=== PATIENT | female | born 1980 | race Caucasian/White ===

== ENCOUNTER 2017-04-05 04:59 | Inpatient (IN) ==
[2017-04-05] MEDS: SODIUM CHLORIDE 0.9% 1,000 ML IV SCH (06:40)
[2017-04-05] MEDS: HYDROmorphone 2 MG/1 ML VIAL IV PRN ×8 (07:00→23:50)
[2017-04-05 07:52] LABS: Basophils % 0.1 % (0.0-0.8); Eosinophils % 0.1 % (0.00-10.9); Hematocrit 44.1 VOL% (35.7-47.0); Hemoglobin 14.5 GM/DL (12.0-16.0); Immature Granulocytes % 1.5 %; Immature Granulocytes Absolute 0.27 #; Lymphocytes # 1.4 10*3/uL (1.4-4.0); Lymphocytes % 7.7 % (21.3-54.2); Mean Corpuscular HGB Conc 32.9 GM/DL (32-36); Mean Corpuscular Hemoglobin 32 PG (27-34); Mean Corpuscular Volume 98.7 FL (87-102); Mean Platelet Volume 9.9 FL (9.6-12.0); Monocytes # 0.3 10*3/uL (0.11-0.8); Monocytes % 1.8 % (1.7-12.7); Neutrophils # 16.5 10*3/uL (1.4-7.4); Neutrophils % 88.8 % (38.7-73.9); Platelet Count 428 T/CUMM (130-400); Red Blood Count 4.47 MC/CUMM (3.8-5.5); Red Cell Distribution Width 14.7 % (9.3-17.3); White Blood Count 18.6 T/CUMM (4-12)
[2017-04-05 08:10] LABS: Albumin 2.4 G/DL (3.4-5.0); Bilirubin,Total 0.5 MG/DL (0.2-1.0); Calcium 8.1 MG/DL (8.5-10.1); Osmolality,Calculated 283.7 MOS/KG (273-304); Potassium 3.1 MMOL/L (3.5-5.1)
[2017-04-05 08:11] LABS: Risk Ratio 2.62; VLDL CHOLESTEROL 43.4 MG/DL
[2017-04-05] MEDS ORDERED: HYDROmorphone 2 MG/1 ML VIAL IV ONE (10:12)
[2017-04-05] MEDS ORDERED: oxyCODONE/ACETAMINOPHEN 5-325 MG TABLET PO PRN (10:13)
[2017-04-05] MEDS ORDERED: HYDROmorphone 2 MG/1 ML VIAL IV PRN (11:53)
[2017-04-05] MEDS ORDERED: HYDROmorphone PCA 30 MG/30 ML SYRINGE IV SCH (12:30)
[2017-04-05] MEDS: ONDANSETRON 4 MG/2 ML VIAL IV PRN ×3 (13:32→21:50)
[2017-04-05] MEDS: POTASSIUM CHLORIDE RIDER 10 MEQ in PREMIX 1 EACH IV SCH ×5 (13:37→23:54)
[2017-04-05] MEDS: fentaNYL 50 MCG/HR PATCH TRANSDERM SCH (17:10)
[2017-04-05] MEDS: METOPROLOL TARTRATE 50 MG TABLET PO SCH ×2 (17:44→21:48)
[2017-04-05] MEDS: HYDROCORTISONE 10 MG TABLET PO SCH ×2 (17:45→21:48)
[2017-04-05] MEDS: LEVOTHYROXINE 88 MCG TABLET PO SCH (17:45)
[2017-04-05] MEDS: hydrALAZINE 20 MG/1 ML VIAL IV PRN (23:15)
[2017-04-06] MEDS ORDERED: SIMETHICONE CHEW 125 MG TABLET PO PRN (00:07)
[2017-04-06] MEDS: HYDROmorphone 2 MG/1 ML VIAL IV PRN ×11 (01:54→23:22)
[2017-04-06] MEDS: ONDANSETRON 4 MG/2 ML VIAL IV PRN ×2 (01:57→21:07)
[2017-04-06] MEDS: POTASSIUM CHLORIDE RIDER 10 MEQ in PREMIX 1 EACH IV SCH (01:59)
[2017-04-06 05:27] LABS: Basophils # 0.1 10*3/uL (0.0-0.2); Basophils % 0.4 % (0.0-0.8); Eosinophils # 0.1 10*3/uL (0.0-0.87); Eosinophils % 0.4 % (0.00-10.9); Hematocrit 50.4 VOL% (35.7-47.0); Hemoglobin 17.2 GM/DL (12.0-16.0); Immature Granulocytes % 1.8 %; Immature Granulocytes Absolute 0.35 #; Lymphocytes # 1.6 10*3/uL (1.4-4.0); Lymphocytes % 7.9 % (21.3-54.2); Mean Corpuscular HGB Conc 34.1 GM/DL (32-36); Mean Corpuscular Hemoglobin 33 PG (27-34); Mean Corpuscular Volume 96.6 FL (87-102); Mean Platelet Volume 9.8 FL (9.6-12.0); Neutrophils # 16.6 10*3/uL (1.4-7.4); Neutrophils % 84.5 % (38.7-73.9); Platelet Count 380 T/CUMM (130-400); Red Blood Count 5.22 MC/CUMM (3.8-5.5); Red Cell Distribution Width 15.6 % (9.3-17.3); White Blood Count 19.6 T/CUMM (4-12)
[2017-04-06] MEDS: SODIUM CHLORIDE 0.45% 1,000 ML IV SCH ×4 (06:06→21:11)
[2017-04-06] MEDS: SODIUM CHLORIDE 0.9% 1,000 ML IV SCH (06:08)
[2017-04-06 06:09] LABS: Albumin 2.1 G/DL (3.4-5.0); Calcium 8.4 MG/DL (8.5-10.1); Osmolality,Calculated 278.3 MOS/KG (273-304); Potassium 4.4 MMOL/L (3.5-5.1); Total Protein 4.5 G/DL (6.4-8.3)
[2017-04-06] MEDS: METOPROLOL TARTRATE 50 MG TABLET PO SCH ×2 (08:11→20:40)
[2017-04-06] MEDS: HYDROCORTISONE 10 MG TABLET PO SCH ×2 (08:11→20:40)
[2017-04-06] MEDS: LEVOTHYROXINE 88 MCG TABLET PO SCH (10:19)
[2017-04-06] MEDS: ALPRAZolam 0.25 MG TABLET PO PRN ×2 (11:06→20:40)
[2017-04-06] MEDS: ALBUTEROL/IPRATROPIUM 3 ML NEB RESP TX SCH (20:55)
[2017-04-07] MEDS: ALBUTEROL/IPRATROPIUM 3 ML NEB RESP TX SCH ×4 (01:16→19:23)
[2017-04-07] MEDS: ONDANSETRON 4 MG/2 ML VIAL IV PRN (01:48)
[2017-04-07] MEDS: HYDROmorphone 2 MG/1 ML VIAL IV PRN ×11 (01:48→23:26)
[2017-04-07] MEDS: SODIUM CHLORIDE 0.45% 1,000 ML IV SCH ×2 (04:07→06:49)
[2017-04-07 05:13] LABS: Basophils % 0.2 % (0.0-0.8); Eosinophils # 0.1 10*3/uL (0.0-0.87); Eosinophils % 0.5 % (0.00-10.9); Hematocrit 41.3 VOL% (35.7-47.0); Hemoglobin 13.6 GM/DL (12.0-16.0); Immature Granulocytes % 0.6 %; Immature Granulocytes Absolute 0.12 #; Lymphocytes # 1.8 10*3/uL (1.4-4.0); Lymphocytes % 9.1 % (21.3-54.2); Mean Corpuscular HGB Conc 32.9 GM/DL (32-36); Mean Corpuscular Hemoglobin 33 PG (27-34); Mean Corpuscular Volume 98.6 FL (87-102); Monocytes # 1.2 10*3/uL (0.11-0.8); Monocytes % 5.9 % (1.7-12.7); Neutrophils # 16.4 10*3/uL (1.4-7.4); Neutrophils % 83.7 % (38.7-73.9); Platelet Count 270 T/CUMM (130-400); Red Blood Count 4.19 MC/CUMM (3.8-5.5); Red Cell Distribution Width 14.8 % (9.3-17.3); White Blood Count 19.6 T/CUMM (4-12)
[2017-04-07] MEDS: ALPRAZolam 0.25 MG TABLET PO PRN ×2 (05:28→15:49)
[2017-04-07 05:47] LABS: Albumin 1.7 G/DL (3.4-5.0); Bilirubin,Total 1.3 MG/DL (0.2-1.0); Calcium 7.9 MG/DL (8.5-10.1); Osmolality,Calculated 268.8 MOS/KG (273-304); Potassium 3.8 MMOL/L (3.5-5.1); Total Protein 4.2 G/DL (6.4-8.3)
[2017-04-07] MEDS: HYDROCORTISONE 10 MG TABLET PO SCH ×2 (08:22→20:09)
[2017-04-07] MEDS: METOPROLOL TARTRATE 50 MG TABLET PO SCH ×2 (08:22→20:09)
[2017-04-07] MEDS: LEVOTHYROXINE 88 MCG TABLET PO SCH (08:24)
[2017-04-07] MEDS ORDERED: FUROSEMIDE 40 MG/4 ML VIAL ONE (09:45)
[2017-04-07] MEDS ORDERED: FUROSEMIDE 40 MG/4 ML VIAL IV ONE (09:53)
[2017-04-07] MEDS ORDERED: SODIUM PHOSPHATE ENEMA 133 ML BOTTLE RECTAL ONE (09:55)
[2017-04-07] MEDS: CEFEPIME 1,000 MG in SYRINGE 1 EACH IV SCH ×2 (11:27→17:46)
[2017-04-07] MEDS ORDERED: DEXTROSE 10% 1,000 ML IV PRN (15:02)
[2017-04-07] MEDS: TRACE ELEMENTS (5) 1 ML, MULTIVITAMIN INJ 10 ML in AMINO ACIDS/DEXT/LYTES 5-15% 2,000 ML IV SCH (17:57)
[2017-04-07] MEDS: FAT EMULSION 20% 250 ML IV SCH (17:58)
[2017-04-07] MEDS ORDERED: LORazepam 2 MG/1 ML VIAL IV PRN (21:00)
[2017-04-07 21:23] LABS: Basophils % 0.2 % (0.0-0.8); Eosinophils # 0.1 10*3/uL (0.0-0.87); Eosinophils % 0.6 % (0.00-10.9); Hematocrit 38.7 VOL% (35.7-47.0); Hemoglobin 13.4 GM/DL (12.0-16.0); Immature Granulocytes % 0.5 %; Lymphocytes # 1.5 10*3/uL (1.4-4.0); Lymphocytes % 8.1 % (21.3-54.2); Mean Corpuscular HGB Conc 34.6 GM/DL (32-36); Mean Corpuscular Hemoglobin 33 PG (27-34); Mean Corpuscular Volume 95.8 FL (87-102); Mean Platelet Volume 10.5 FL (9.6-12.0); Monocytes # 1.1 10*3/uL (0.11-0.8); Monocytes % 5.7 % (1.7-12.7); Neutrophils # 15.9 10*3/uL (1.4-7.4); Neutrophils % 84.9 % (38.7-73.9); Platelet Count 177 T/CUMM (130-400); Red Blood Count 4.04 MC/CUMM (3.8-5.5); Red Cell Distribution Width 14.9 % (9.3-17.3); White Blood Count 18.7 T/CUMM (4-12)
[2017-04-07 21:40] LABS: Calcium 7.4 MG/DL (8.5-10.1); Osmolality,Calculated 272.7 MOS/KG (273-304); Potassium 3.1 MMOL/L (3.5-5.1)
[2017-04-07 21:44] LABS: Troponin I Only < 0.015 NG/ML (0.00-0.045)
[2017-04-07] MEDS ORDERED: POTASSIUM CHLORIDE RIDER 10 MEQ in PREMIX 1 EACH IV PRN ×2 (22:04→22:09)
[2017-04-07] MEDS ORDERED: POTASSIUM CHLORIDE RIDER 0 ML IV ONE (22:13)
[2017-04-07] MEDS ORDERED: POTASSIUM CHLORIDE RIDER 20 MEQ in PREMIX 1 EACH IV PRN (22:21)
[2017-04-07] MEDS: POTASSIUM CHLORIDE RIDER 20 MEQ in PREMIX 1 EACH IV PRN (22:54)
[2017-04-07] MEDS ORDERED: ALBUTEROL 2.5 MG/3 ML NEB RESP TX SCH (23:00)
[2017-04-07 23:37] LABS: Apearance,Urine CLEAR (Clear); Bacteria,Urine Occasional /HPF (Few); Bilirubin,Urine Negative (Negative); Blood, Urine Negative (Negative); Glucose,Urine (UA) 50 mg/dL (Negative); Ketones,Urine 20 mg/dL (Negative); Mucus,Urine Occasional /LPF (Occasional); Nitrite,Urine Negative (Negative); Protein,Urine Negative; Squamous Epithelial Cell,Urine Occasional /HPF (0-10); Urine Color Yellow (Yellow); Urine Urobilinogen < 2.0 EU/DL (0.2-1.0); WBC,Urine 1 /HPF (0-6)
[2017-04-08] MEDS: LEVALBUTEROL 1.25 MG/3 ML NEB RESP TX SCH ×7 (00:15→23:54)
[2017-04-08] MEDS: POTASSIUM CHLORIDE RIDER 20 MEQ in PREMIX 1 EACH IV PRN ×2 (00:45→05:56)
[2017-04-08] MEDS: CEFEPIME 1,000 MG in SYRINGE 1 EACH IV SCH ×3 (02:18→17:20)
[2017-04-08] MEDS: HYDROmorphone 2 MG/1 ML VIAL IV PRN ×10 (02:22→23:35)
[2017-04-08] MEDS: ALPRAZolam 0.25 MG TABLET PO PRN ×3 (05:03→19:24)
[2017-04-08 05:18] LABS: Basophils % 0.1 % (0.0-0.8); Eosinophils # 0.1 10*3/uL (0.0-0.87); Eosinophils % 0.6 % (0.00-10.9); Hematocrit 34.5 VOL% (35.7-47.0); Hemoglobin 11.9 GM/DL (12.0-16.0); Immature Granulocytes % 0.6 %; Lymphocytes # 1.1 10*3/uL (1.4-4.0); Lymphocytes % 6.6 % (21.3-54.2); Mean Corpuscular HGB Conc 34.5 GM/DL (32-36); Mean Corpuscular Hemoglobin 33 PG (27-34); Mean Corpuscular Volume 95.6 FL (87-102); Monocytes # 0.9 10*3/uL (0.11-0.8); Monocytes % 5.2 % (1.7-12.7); Neutrophils % 86.9 % (38.7-73.9); Platelet Count 239 T/CUMM (130-400); Red Blood Count 3.61 MC/CUMM (3.8-5.5); White Blood Count 17.2 T/CUMM (4-12)
[2017-04-08 05:26] LABS: Calcium 7.7 MG/DL (8.5-10.1); Osmolality,Calculated 275.5 MOS/KG (273-304); Potassium 3.9 MMOL/L (3.5-5.1)
[2017-04-08 05:29] LABS: Albumin 1.7 G/DL (3.4-5.0); Bilirubin,Total 0.5 MG/DL (0.2-1.0); Calcium 7.4 MG/DL (8.5-10.1); Osmolality,Calculated 277.4 MOS/KG (273-304); Potassium 3.7 MMOL/L (3.5-5.1); Total Protein 4.1 G/DL (6.4-8.3)
[2017-04-08] MEDS ORDERED: FUROSEMIDE 40 MG/4 ML VIAL IV ONE (07:26)
[2017-04-08] MEDS: HYDROCORTISONE 10 MG TABLET PO SCH (08:26)
[2017-04-08] MEDS: LEVOTHYROXINE 88 MCG TABLET PO SCH (08:26)
[2017-04-08] MEDS: METOPROLOL TARTRATE 50 MG TABLET PO SCH ×2 (08:26→21:29)
[2017-04-08] MEDS: fentaNYL 50 MCG/HR PATCH TRANSDERM SCH (08:27)
[2017-04-08] MEDS: FAT EMULSION 20% 250 ML IV SCH (15:42)
[2017-04-08] MEDS: TRACE ELEMENTS (5) 1 ML, MULTIVITAMIN INJ 10 ML in AMINO ACIDS/DEXT/LYTES 5-15% 2,000 ML IV SCH (17:06)
[2017-04-08] MEDS: methylPREDNISolone SOD SUC 40 MG/1 ML VIAL IV SCH ×2 (17:16→21:27)
[2017-04-08] MEDS: AZITHROMYCIN INJ 500 MG in SODIUM CHLORIDE 0.9% 250 ML IV SCH (17:40)
[2017-04-08] MEDS: ENOXAPARIN 40 MG/0.4 ML SYRINGE SUBCUT SCH (21:28)
[2017-04-08] MEDS: hydrALAZINE 20 MG/1 ML VIAL IV PRN (23:35)
[2017-04-09] MEDS: HYDROmorphone 2 MG/1 ML VIAL IV PRN ×6 (01:44→21:31)
[2017-04-09] MEDS: CEFEPIME 1,000 MG in SYRINGE 1 EACH IV SCH ×3 (02:30→17:45)
[2017-04-09] MEDS: methylPREDNISolone SOD SUC 40 MG/1 ML VIAL IV SCH (03:16)
[2017-04-09] MEDS: ALPRAZolam 0.25 MG TABLET PO PRN ×2 (03:17→08:05)
[2017-04-09] MEDS: LEVALBUTEROL 1.25 MG/3 ML NEB RESP TX SCH ×6 (03:30→23:43)
[2017-04-09] MEDS: hydrALAZINE 20 MG/1 ML VIAL IV PRN (05:01)
[2017-04-09 05:40] LABS: Basophils # 0.1 10*3/uL (0.0-0.2); Basophils % 0.2 % (0.0-0.8); Hematocrit 37.1 VOL% (35.7-47.0); Hemoglobin 12.7 GM/DL (12.0-16.0); Immature Granulocytes % 1.2 %; Lymphocytes # 0.3 10*3/uL (1.4-4.0); Lymphocytes % 0.9 % (21.3-54.2); Mean Corpuscular HGB Conc 34.2 GM/DL (32-36); Mean Corpuscular Hemoglobin 33 PG (27-34); Mean Corpuscular Volume 96.1 FL (87-102); Mean Platelet Volume 10.5 FL (9.6-12.0); Monocytes # 0.6 10*3/uL (0.11-0.8); Monocytes % 1.9 % (1.7-12.7); Neutrophils # 30.8 10*3/uL (1.4-7.4); Neutrophils % 95.8 % (38.7-73.9); Platelet Count 272 T/CUMM (130-400); Red Blood Count 3.86 MC/CUMM (3.8-5.5); Red Cell Distribution Width 15.4 % (9.3-17.3); White Blood Count 32.2 T/CUMM (4-12)
[2017-04-09 06:07] LABS: Alanine Aminotransferase < 9 U/L (13-56); Albumin 1.9 G/DL (3.4-5.0); Alkaline Phosphatase 129 U/L (45-117); Aspartate Amino Transferase 35 U/L (0-37); Blood Urea Nitrogen 7 MG/DL (7-18); Calcium 8.1 MG/DL (8.5-10.1); Glucose 152 MG/DL (74-106); Osmolality,Calculated 283.1 MOS/KG (273-304); Potassium 3.7 MMOL/L (3.5-5.1); Sodium 142 MMOL/L (136-145); Total Protein 5.1 G/DL (6.4-8.3)
[2017-04-09 06:09] LABS: Band Neutrophils 5 % (0-10); Lymphocytes 1 % (20-55); Macrocytosis 2+; Platelet Estimate Normal; Segmented Neutrophils 91 % (50-85); Total Cells Counted 100
[2017-04-09] MEDS ORDERED: LORazepam 2 MG/1 ML VIAL IV ONE ×3 (06:30→14:30)
[2017-04-09] MEDS ORDERED: LIDOCAINE 1% 20 ML VIAL MISC INJ ONE (07:30)
[2017-04-09] MEDS ORDERED: MIDAZOLAM 2 MG/2 ML VIAL IV ONE (07:30)
[2017-04-09] MEDS ORDERED: METOPROLOL SUCCINATE XL 50 MG TABLET PO ONE (08:05)
[2017-04-09] MEDS ORDERED: METOPROLOL TARTRATE 5 MG/5 ML VIAL IV ONE ×2 (08:06→08:23)
[2017-04-09] MEDS: METOPROLOL SUCCINATE XL 50 MG TABLET PO SCH ×3 (08:10→20:19)
[2017-04-09] MEDS ORDERED: METOPROLOL TARTRATE 5 MG/5 ML VIAL IV PRN (08:23)
[2017-04-09] MEDS ORDERED: methylPREDNISolone SOD SUC 40 MG/1 ML VIAL IV SCH (09:00)
[2017-04-09 10:13] LABS: Apearance,Urine CLEAR (Clear); Bacteria,Urine Occasional /HPF (Few); Bilirubin,Urine Negative (Negative); Blood, Urine Small mg/dL (Negative); Glucose,Urine (UA) 150 mg/dL (Negative); Ketones,Urine Negative (Negative); Mucus,Urine Occasional /LPF (Occasional); Nitrite,Urine Negative (Negative); Protein,Urine Negative; RBC,Urine 5 /HPF (0-4); Squamous Epithelial Cell,Urine Occasional /HPF (0-10); Urine Color Yellow (Yellow); Urine Specific Gravity 1.058 (1.001-1.035); Urine Urobilinogen < 2.0 EU/DL (0.2-1.0); WBC,Urine 1 /HPF (0-6)
[2017-04-09] MEDS ORDERED: LIDOCAINE 2% VISCOUS 100 ML BOTTLE SWISH/SPIT ONE (10:21)
[2017-04-09] MEDS ORDERED: LIDOCAINE 4% TOP SOLN 50 ML BOTTLE RESP TX ONE (10:24)
[2017-04-09 10:28] LABS: ABG HCO3 32.4 MMOL/L (20-26); ABG Oxygen Saturation 82.9 % (95-100); ABG PCO2 40.2 MM HG (35-48); ABG PH 7.519 (7.35-7.45); ABG PO2 44.8 MM HG (80-95); ABG TCO2 28.4 MMOL/L (23-27); Allen Test Positive
[2017-04-09] MEDS: LEVOTHYROXINE 88 MCG TABLET PO SCH (10:34)
[2017-04-09] MEDS ORDERED: LABETALOL 100 MG/20 ML VIAL IV ONE ×2 (11:07→13:38)
[2017-04-09] MEDS: VANCOMYCIN INJ 1,000 MG in SODIUM CHLORIDE 0.9% 250 ML IV SCH ×2 (11:30→19:23)
[2017-04-09] MEDS: ALPRAZolam 0.5 MG TABLET PO PRN (12:53)
[2017-04-09] MEDS ORDERED: ETOMIDATE 20 MG/10 ML VIAL IV ONE ×2 (13:02→13:28)
[2017-04-09] MEDS ORDERED: SUCCINYLCHOLINE 200 MG/10 ML VIAL ONE (13:07)
[2017-04-09] MEDS ORDERED: PROPOFOL 1,000 MG/100 ML BOTTLE IV ONE (13:09)
[2017-04-09] MEDS ORDERED: SUCCINYLCHOLINE 200 MG/10 ML VIAL IV ONE (13:29)
[2017-04-09] MEDS ORDERED: LORazepam 2 MG/1 ML VIAL ONE (13:36)
[2017-04-09] MEDS: PROPOFOL 1,000 MG/100 ML BOTTLE IV SCH ×3 (13:43→19:38)
[2017-04-09] MEDS: fentaNYL INJ 1,250 MCG in SODIUM CHLORIDE 0.9% 225 ML IV SCH (14:45)
[2017-04-09 14:46] LABS: ABG Base Excess 6.5 MMOL/L (-2.5-2.5); ABG HCO3 30.3 MMOL/L (20-26); ABG Oxygen Saturation 94.6 % (95-100); ABG PCO2 48.3 MM HG (35-48); ABG PO2 74.6 MM HG (80-95); ABG TCO2 28.3 MMOL/L (23-27)
[2017-04-09] MEDS: FAT EMULSION 20% 250 ML IV SCH (15:30)
[2017-04-09] MEDS: AZITHROMYCIN INJ 500 MG in SODIUM CHLORIDE 0.9% 250 ML IV SCH (17:50)
[2017-04-09] MEDS: TRACE ELEMENTS (5) 1 ML, MULTIVITAMIN INJ 10 ML in AMINO ACIDS/DEXT/LYTES 5-15% 2,000 ML IV SCH (19:42)
[2017-04-09] MEDS: ENOXAPARIN 40 MG/0.4 ML SYRINGE SUBCUT SCH (20:18)
[2017-04-10] MEDS: PROPOFOL 1,000 MG/100 ML BOTTLE IV SCH ×9 (00:55→23:49)
[2017-04-10] MEDS: VANCOMYCIN INJ 1,000 MG in SODIUM CHLORIDE 0.9% 250 ML IV SCH ×3 (02:36→20:08)
[2017-04-10] MEDS: CEFEPIME 1,000 MG in SYRINGE 1 EACH IV SCH ×3 (02:36→18:11)
[2017-04-10 04:37] LABS: ABG Base Excess 6.9 MMOL/L (-2.5-2.5); ABG HCO3 30.8 MMOL/L (20-26); ABG Oxygen Saturation 99.6 % (95-100); ABG PCO2 48.7 MM HG (35-48); ABG PH 7.431 (7.35-7.45); ABG TCO2 28.9 MMOL/L (23-27); Allen Test Positive; Pt O2 Delivery Device Ventilator
[2017-04-10] MEDS: LEVALBUTEROL 1.25 MG/3 ML NEB RESP TX SCH ×6 (04:37→23:41)
[2017-04-10 05:12] LABS: Basophils % 0.1 % (0.0-0.8); Hematocrit 32.6 VOL% (35.7-47.0); Hemoglobin 11.2 GM/DL (12.0-16.0); Immature Granulocytes % 1.2 %; Immature Granulocytes Absolute 0.36 #; Lymphocytes # 0.8 10*3/uL (1.4-4.0); Lymphocytes % 2.5 % (21.3-54.2); Mean Corpuscular HGB Conc 34.4 GM/DL (32-36); Mean Corpuscular Hemoglobin 33 PG (27-34); Mean Corpuscular Volume 96.7 FL (87-102); Mean Platelet Volume 10.2 FL (9.6-12.0); Monocytes # 1.2 10*3/uL (0.11-0.8); Monocytes % 3.8 % (1.7-12.7); Neutrophils # 28.6 10*3/uL (1.4-7.4); Neutrophils % 92.4 % (38.7-73.9); Platelet Count 252 T/CUMM (130-400); Red Blood Count 3.37 MC/CUMM (3.8-5.5); Red Cell Distribution Width 15.7 % (9.3-17.3); White Blood Count 30.9 T/CUMM (4-12)
[2017-04-10 05:39] LABS: Alanine Aminotransferase 9 U/L (13-56); Albumin 1.7 G/DL (3.4-5.0); Alkaline Phosphatase 104 U/L (45-117); Aspartate Amino Transferase 32 U/L (0-37); Bilirubin,Total < 0.39 MG/DL (0.2-1.0); Blood Urea Nitrogen 11 MG/DL (7-18); Calcium 8.3 MG/DL (8.5-10.1); Glucose 158 MG/DL (74-106); Potassium 3.7 MMOL/L (3.5-5.1); Sodium 143 MMOL/L (136-145); Total Protein 4.8 G/DL (6.4-8.3)
[2017-04-10 05:40] LABS: Band Neutrophils 1 % (0-10); Lymphocytes 3 % (20-55); Segmented Neutrophils 92 % (50-85); Total Cells Counted 100
[2017-04-10 05:41] LABS: Hypochromasia 1+; Macrocytosis Slight; Platelet Estimate Adequate; Prealbumin 10.8 MG/DL (20-40)
[2017-04-10] MEDS: methylPREDNISolone SOD SUC 40 MG/1 ML VIAL IV SCH ×2 (09:36→18:13)
[2017-04-10] MEDS: LEVOTHYROXINE 88 MCG TABLET PO SCH (09:37)
[2017-04-10] MEDS: fentaNYL INJ 1,250 MCG in SODIUM CHLORIDE 0.9% 225 ML IV SCH ×2 (10:16→14:36)
[2017-04-10] MEDS: METOPROLOL SUCCINATE XL 50 MG TABLET PO SCH (10:45)
[2017-04-10] MEDS ORDERED: SODIUM CHLORIDE 0.9% 500 ML IV SCH (11:30)
[2017-04-10] MEDS ORDERED: TRACE ELEMENTS (5) 1 ML, MULTIVITAMIN INJ 10 ML in AMINO ACIDS/DEXT/LYTES 5-15% 2,000 ML IV SCH (17:00)
[2017-04-10] MEDS: METOPROLOL TARTRATE 100 MG TABLET PO SCH ×2 (18:03→20:08)
[2017-04-10] MEDS: AZITHROMYCIN INJ 500 MG in SODIUM CHLORIDE 0.9% 250 ML IV SCH (18:34)
[2017-04-10] MEDS: ENOXAPARIN 40 MG/0.4 ML SYRINGE SUBCUT SCH (20:08)
[2017-04-10] MEDS: HYDROmorphone 2 MG/1 ML VIAL IV PRN ×2 (20:08→23:41)
[2017-04-11] MEDS: VANCOMYCIN INJ 1,000 MG in SODIUM CHLORIDE 0.9% 250 ML IV SCH (01:41)
[2017-04-11] MEDS: methylPREDNISolone SOD SUC 40 MG/1 ML VIAL IV SCH ×3 (01:41→16:53)
[2017-04-11] MEDS: CEFEPIME 1,000 MG in SYRINGE 1 EACH IV SCH ×3 (01:41→18:07)
[2017-04-11] MEDS: PROPOFOL 1,000 MG/100 ML BOTTLE IV SCH ×7 (02:43→22:59)
[2017-04-11] MEDS: LEVALBUTEROL 1.25 MG/3 ML NEB RESP TX SCH ×6 (03:20→23:51)
[2017-04-11] MEDS: HYDROmorphone 2 MG/1 ML VIAL IV PRN ×4 (04:23→19:47)
[2017-04-11 04:34] LABS: Basophils % 0.1 % (0.0-0.8); Hematocrit 31.9 VOL% (35.7-47.0); Hemoglobin 10.4 GM/DL (12.0-16.0); Immature Granulocytes % 1.7 %; Immature Granulocytes Absolute 0.46 #; Lymphocytes # 0.7 10*3/uL (1.4-4.0); Lymphocytes % 2.5 % (21.3-54.2); Mean Corpuscular HGB Conc 32.6 GM/DL (32-36); Mean Corpuscular Hemoglobin 33 PG (27-34); Mean Corpuscular Volume 101.6 FL (87-102); Mean Platelet Volume 11.5 FL (9.6-12.0); Monocytes # 1.3 10*3/uL (0.11-0.8); Monocytes % 4.6 % (1.7-12.7); Neutrophils # 25.4 10*3/uL (1.4-7.4); Neutrophils % 91.1 % (38.7-73.9); Platelet Count 250 T/CUMM (130-400); Red Blood Count 3.14 MC/CUMM (3.8-5.5); Red Cell Distribution Width 15.7 % (9.3-17.3); White Blood Count 27.9 T/CUMM (4-12)
[2017-04-11 05:00] LABS: Anisocytosis 2+; Band Neutrophils 5 % (0-10); Lymphocytes 5 % (20-55); Macrocytosis 3+; Segmented Neutrophils 90 % (50-85); Total Cells Counted 100
[2017-04-11 05:01] LABS: Platelet Estimate Normal
[2017-04-11] MEDS: fentaNYL INJ 1,250 MCG in SODIUM CHLORIDE 0.9% 225 ML IV SCH ×2 (05:25→15:37)
[2017-04-11] MEDS ORDERED: DEXTROSE 50% 25 GM/50 ML VIAL IV PRN (09:34)
[2017-04-11] MEDS ORDERED: GLUCAGON 1 MG VIAL IM PRN (09:34)
[2017-04-11] MEDS: METOPROLOL TARTRATE 100 MG TABLET PO SCH ×2 (09:58→20:03)
[2017-04-11] MEDS: LEVOTHYROXINE 88 MCG TABLET PO SCH (09:58)
[2017-04-11] MEDS: VANCOMYCIN INJ 1,250 MG in SODIUM CHLORIDE 0.9% 250 ML IV SCH ×2 (11:13→18:11)
[2017-04-11] MEDS: INSULIN REGULAR 100 UNIT/ML SUBCUT SCH ×2 (13:10→18:06)
[2017-04-11] MEDS: AZITHROMYCIN INJ 500 MG in SODIUM CHLORIDE 0.9% 250 ML IV SCH (16:56)
[2017-04-11] MEDS ORDERED: TRACE ELEMENTS (5) 1 ML, MULTIVITAMIN INJ 10 ML in AMINO ACIDS/DEXT/LYTES 5-15% 2,000 ML IV SCH (17:00)
[2017-04-11] MEDS ORDERED: TRACE ELEMENTS (5) 1 ML, MULTIVITAMIN INJ 10 ML in AMINO ACIDS/DEXT/LYTES 4.25-5% 2,000 ML IV SCH (17:00)
[2017-04-11] MEDS: ENOXAPARIN 40 MG/0.4 ML SYRINGE SUBCUT SCH (20:03)
[2017-04-11] MEDS: hydrALAZINE 20 MG/1 ML VIAL IV PRN (23:39)
[2017-04-12] MEDS: INSULIN REGULAR 100 UNIT/ML SUBCUT SCH ×4 (00:45→18:31)
[2017-04-12] MEDS: methylPREDNISolone SOD SUC 40 MG/1 ML VIAL IV SCH ×3 (00:46→17:00)
[2017-04-12] MEDS: fentaNYL INJ 1,250 MCG in SODIUM CHLORIDE 0.9% 225 ML IV SCH ×5 (00:46→18:05)
[2017-04-12] MEDS: PROPOFOL 1,000 MG/100 ML BOTTLE IV SCH ×8 (00:47→22:15)
[2017-04-12] MEDS: VANCOMYCIN INJ 1,250 MG in SODIUM CHLORIDE 0.9% 250 ML IV SCH ×3 (02:26→18:23)
[2017-04-12] MEDS: CEFEPIME 1,000 MG in SYRINGE 1 EACH IV SCH ×3 (02:27→18:20)
[2017-04-12] MEDS: LEVALBUTEROL 1.25 MG/3 ML NEB RESP TX SCH ×6 (03:02→23:03)
[2017-04-12 03:22] LABS: ABG HCO3 30.7 MMOL/L (20-26); ABG PCO2 46.2 MM HG (35-48); ABG PH 7.451 (7.35-7.45); ABG PO2 80.7 MM HG (80-95)
[2017-04-12 03:23] LABS: ABG Oxygen Saturation 95.9 % (95-100); ABG TCO2 27.5 MMOL/L (23-27)
[2017-04-12] MEDS: HYDROmorphone 2 MG/1 ML VIAL IV PRN ×4 (04:15→18:21)
[2017-04-12 05:10] LABS: Basophils % 0.2 % (0.0-0.8); Hematocrit 31.3 VOL% (35.7-47.0); Immature Granulocytes % 1.8 %; Immature Granulocytes Absolute 0.43 #; Lymphocytes # 1.3 10*3/uL (1.4-4.0); Lymphocytes % 5.3 % (21.3-54.2); Mean Corpuscular HGB Conc 31.9 GM/DL (32-36); Mean Corpuscular Hemoglobin 32 PG (27-34); Mean Corpuscular Volume 101.3 FL (87-102); Mean Platelet Volume 10.2 FL (9.6-12.0); Monocytes # 1.3 10*3/uL (0.11-0.8); Monocytes % 5.4 % (1.7-12.7); Neutrophils # 21.4 10*3/uL (1.4-7.4); Neutrophils % 87.3 % (38.7-73.9); Platelet Count 264 T/CUMM (130-400); Red Blood Count 3.09 MC/CUMM (3.8-5.5); Red Cell Distribution Width 15.4 % (9.3-17.3); White Blood Count 24.5 T/CUMM (4-12)
[2017-04-12 05:21] LABS: Osmolality,Calculated 289.3 MOS/KG (273-304); Potassium 4.2 MMOL/L (3.5-5.1)
[2017-04-12 05:30] LABS: Hypochromasia 1+; Lymphocytes 4 % (20-55); Macrocytosis 1+; Segmented Neutrophils 92 % (50-85); Total Cells Counted 100
[2017-04-12] MEDS: METOPROLOL TARTRATE 100 MG TABLET PO SCH ×2 (08:31→21:51)
[2017-04-12] MEDS: LEVOTHYROXINE 88 MCG TABLET PO SCH (08:31)
[2017-04-12] MEDS: AZITHROMYCIN INJ 500 MG in SODIUM CHLORIDE 0.9% 250 ML IV SCH (17:03)
[2017-04-12] MEDS: hydrALAZINE 20 MG/1 ML VIAL IV PRN (18:38)
[2017-04-12] MEDS: ALPRAZolam 0.5 MG TABLET PO PRN (21:51)
[2017-04-12] MEDS: ENOXAPARIN 40 MG/0.4 ML SYRINGE SUBCUT SCH (21:51)
[2017-04-12] MEDS: fentaNYL INJ 2,500 MCG in SODIUM CHLORIDE 0.9% 450 ML IV SCH (22:04)
[2017-04-13] MEDS: INSULIN REGULAR 100 UNIT/ML SUBCUT SCH ×4 (00:45→17:33)
[2017-04-13] MEDS: methylPREDNISolone SOD SUC 40 MG/1 ML VIAL IV SCH ×3 (00:46→19:22)
[2017-04-13] MEDS: CEFEPIME 1,000 MG in SYRINGE 1 EACH IV SCH ×3 (00:59→19:23)
[2017-04-13] MEDS: PROPOFOL 1,000 MG/100 ML BOTTLE IV SCH ×5 (01:31→21:32)
[2017-04-13] MEDS ORDERED: VANCOMYCIN INJ 1,750 MG in SODIUM CHLORIDE 0.9% 500 ML IV ONE (02:00)
[2017-04-13] MEDS: LEVALBUTEROL 1.25 MG/3 ML NEB RESP TX SCH ×2 (03:23→07:04)
[2017-04-13 06:22] LABS: Prealbumin 19.2 MG/DL (20-40)
[2017-04-13] MEDS: METOPROLOL TARTRATE 100 MG TABLET PO SCH ×2 (09:12→20:08)
[2017-04-13] MEDS: LEVOTHYROXINE 88 MCG TABLET PO SCH (09:12)
[2017-04-13] MEDS: VANCOMYCIN INJ 1,250 MG in SODIUM CHLORIDE 0.9% 250 ML IV SCH ×2 (09:53→19:28)
[2017-04-13] MEDS: HYDROmorphone 2 MG/1 ML VIAL IV PRN ×3 (10:28→20:08)
[2017-04-13] MEDS: ALBUTEROL/IPRATROPIUM 3 ML NEB RESP TX SCH ×3 (10:51→20:45)
[2017-04-13] MEDS: fentaNYL INJ 2,500 MCG in SODIUM CHLORIDE 0.9% 450 ML IV SCH ×2 (13:33→23:21)
[2017-04-13] MEDS: fentaNYL INJ 1,250 MCG in SODIUM CHLORIDE 0.9% 225 ML IV SCH (13:33)
[2017-04-13] MEDS: ALPRAZolam 0.5 MG TABLET PO PRN (14:46)
[2017-04-13] MEDS: AZITHROMYCIN INJ 500 MG in SODIUM CHLORIDE 0.9% 250 ML IV SCH (19:15)
[2017-04-13] MEDS: ENOXAPARIN 40 MG/0.4 ML SYRINGE SUBCUT SCH (20:08)
[2017-04-14] MEDS: INSULIN REGULAR 100 UNIT/ML SUBCUT SCH ×4 (00:10→17:08)
[2017-04-14] MEDS: ALBUTEROL/IPRATROPIUM 3 ML NEB RESP TX SCH ×6 (00:19→19:27)
[2017-04-14] MEDS: PROPOFOL 1,000 MG/100 ML BOTTLE IV SCH ×8 (00:51→23:26)
[2017-04-14] MEDS: methylPREDNISolone SOD SUC 40 MG/1 ML VIAL IV SCH ×3 (02:00→16:50)
[2017-04-14] MEDS: VANCOMYCIN INJ 1,250 MG in SODIUM CHLORIDE 0.9% 250 ML IV SCH ×3 (02:36→17:36)
[2017-04-14] MEDS: CEFEPIME 1,000 MG in SYRINGE 1 EACH IV SCH ×3 (02:42→17:32)
[2017-04-14 04:04] LABS: Allen Test Positive; Pt O2 Delivery Device Ventilator
[2017-04-14 04:05] LABS: ABG Base Excess 6.2 MMOL/L (-2.5-2.5); ABG Oxygen Saturation 98.1 % (95-100); ABG PCO2 45.7 MM HG (35-48); ABG PH 7.441 (7.35-7.45); ABG TCO2 28.2 MMOL/L (23-27)
[2017-04-14 04:59] LABS: Basophils % 0.2 % (0.0-0.8); Eosinophils % 0.2 % (0.00-10.9); Hematocrit 29.2 VOL% (35.7-47.0); Hemoglobin 10.3 GM/DL (12.0-16.0); Immature Granulocytes % 4.9 %; Lymphocytes # 0.7 10*3/uL (1.4-4.0); Lymphocytes % 3.4 % (21.3-54.2); Mean Corpuscular HGB Conc 35.3 GM/DL (32-36); Mean Corpuscular Hemoglobin 34 PG (27-34); Mean Corpuscular Volume 97.7 FL (87-102); Mean Platelet Volume 11.4 FL (9.6-12.0); Monocytes # 1.1 10*3/uL (0.11-0.8); Monocytes % 5.2 % (1.7-12.7); Neutrophils # 17.4 10*3/uL (1.4-7.4); Neutrophils % 86.1 % (38.7-73.9); Platelet Count 282 T/CUMM (130-400); Red Blood Count 2.99 MC/CUMM (3.8-5.5); White Blood Count 20.3 T/CUMM (4-12)
[2017-04-14] MEDS: HYDROmorphone 2 MG/1 ML VIAL IV PRN ×6 (05:06→21:09)
[2017-04-14] MEDS: hydrALAZINE 20 MG/1 ML VIAL IV PRN (05:07)
[2017-04-14 05:22] LABS: Band Neutrophils 3 % (0-10); Giant Platelets Few; Hypochromasia Slight; Lymphocytes 1 % (20-55); Myelocytes 1 %; Nucleated Red Blood Cells 1 (0-5); Platelet Estimate Adequate; Segmented Neutrophils 92 % (50-85); Total Cells Counted 100
[2017-04-14 05:23] LABS: Macrocytosis Slight
[2017-04-14 05:43] LABS: Albumin 1.5 G/DL (3.4-5.0); Calcium 6.9 MG/DL (8.5-10.1); Osmolality,Calculated 281.5 MOS/KG (273-304)
[2017-04-14] MEDS ORDERED: FUROSEMIDE 40 MG/4 ML VIAL IV ONE (08:28)
[2017-04-14] MEDS: METOPROLOL TARTRATE 100 MG TABLET PO SCH ×2 (09:40→20:11)
[2017-04-14] MEDS: LEVOTHYROXINE 88 MCG TABLET PO SCH (09:47)
[2017-04-14] MEDS: AZITHROMYCIN INJ 500 MG in SODIUM CHLORIDE 0.9% 250 ML IV SCH (16:54)
[2017-04-14] MEDS: ENOXAPARIN 40 MG/0.4 ML SYRINGE SUBCUT SCH (20:11)
[2017-04-15] MEDS: ALBUTEROL/IPRATROPIUM 3 ML NEB RESP TX SCH ×6 (00:08→19:41)
[2017-04-15] MEDS: INSULIN REGULAR 100 UNIT/ML SUBCUT SCH ×2 (01:30→06:24)
[2017-04-15] MEDS: CEFEPIME 1,000 MG in SYRINGE 1 EACH IV SCH ×3 (02:01→17:26)
[2017-04-15] MEDS: VANCOMYCIN INJ 1,250 MG in SODIUM CHLORIDE 0.9% 250 ML IV SCH ×3 (02:02→17:34)
[2017-04-15] MEDS: methylPREDNISolone SOD SUC 40 MG/1 ML VIAL IV SCH ×3 (02:04→17:24)
[2017-04-15] MEDS: PROPOFOL 1,000 MG/100 ML BOTTLE IV SCH ×2 (02:24→05:50)
[2017-04-15] MEDS: fentaNYL INJ 2,500 MCG in SODIUM CHLORIDE 0.9% 450 ML IV SCH (02:48)
[2017-04-15] MEDS: METOPROLOL TARTRATE 100 MG TABLET PO SCH ×2 (09:24→20:56)
[2017-04-15] MEDS: LEVOTHYROXINE 88 MCG TABLET PO SCH (09:24)
[2017-04-15 09:35] LABS: Pt O2 Delivery Device Ventilator
[2017-04-15 09:38] LABS: ABG Base Excess 8.3 MMOL/L (-2.5-2.5); ABG Oxygen Saturation 95.9 % (95-100); ABG PCO2 43.1 MM HG (35-48); ABG PH 7.487 (7.35-7.45); ABG PO2 79.4 MM HG (80-95); ABG TCO2 29.4 MMOL/L (23-27)
[2017-04-15 11:11] LABS: ABG Base Excess 8.8 MMOL/L (-2.5-2.5); ABG HCO3 32.4 MMOL/L (20-26); ABG Oxygen Saturation 90.4 % (95-100); ABG PCO2 39.2 MM HG (35-48); ABG PH 7.525 (7.35-7.45); ABG PO2 56.7 MM HG (80-95); ABG TCO2 28.8 MMOL/L (23-27)
[2017-04-15] MEDS: HYDROmorphone 2 MG/1 ML VIAL IV PRN ×3 (15:00→20:56)
[2017-04-15] MEDS: AZITHROMYCIN INJ 500 MG in SODIUM CHLORIDE 0.9% 250 ML IV SCH (17:34)
[2017-04-15] MEDS: ALPRAZolam 0.5 MG TABLET PO PRN (20:56)
[2017-04-15] MEDS: ENOXAPARIN 40 MG/0.4 ML SYRINGE SUBCUT SCH (20:56)
[2017-04-16] MEDS: HYDROmorphone 2 MG/1 ML VIAL IV PRN ×3 (00:07→06:09)
[2017-04-16] MEDS: methylPREDNISolone SOD SUC 40 MG/1 ML VIAL IV SCH ×3 (00:09→21:03)
[2017-04-16] MEDS: hydrALAZINE 20 MG/1 ML VIAL IV PRN (00:12)
[2017-04-16] MEDS: ALBUTEROL/IPRATROPIUM 3 ML NEB RESP TX SCH ×7 (01:24→23:06)
[2017-04-16] MEDS: VANCOMYCIN INJ 1,250 MG in SODIUM CHLORIDE 0.9% 250 ML IV SCH ×3 (03:45→21:03)
[2017-04-16] MEDS: CEFEPIME 1,000 MG in SYRINGE 1 EACH IV SCH ×3 (03:45→20:48)
[2017-04-16] MEDS: ALPRAZolam 0.5 MG TABLET PO PRN ×4 (04:14→22:21)
[2017-04-16] MEDS ORDERED: ONDANSETRON 4 MG TABLET PO PRN (08:17)
[2017-04-16] MEDS ORDERED: oxyCODONE/ACETAMINOPHEN 5-325 MG TABLET PO PRN (08:18)
[2017-04-16] MEDS: LEVOTHYROXINE 88 MCG TABLET PO SCH (08:30)
[2017-04-16] MEDS: METOPROLOL TARTRATE 100 MG TABLET PO SCH ×2 (08:31→20:48)
[2017-04-16] MEDS ORDERED: ALPRAZOLAM 0.5 MG PO SCH (09:00)
[2017-04-16] MEDS: oxyCODONE/ACETAMINOPHEN 5-325 MG TABLET PO PRN ×3 (12:20→23:47)
[2017-04-16] MEDS: AZITHROMYCIN INJ 500 MG in SODIUM CHLORIDE 0.9% 250 ML IV SCH (16:04)
[2017-04-16] MEDS: ENOXAPARIN 40 MG/0.4 ML SYRINGE SUBCUT SCH (20:48)
[2017-04-17] MEDS: CEFEPIME 1,000 MG in SYRINGE 1 EACH IV SCH ×2 (01:01→09:58)
[2017-04-17] MEDS: ALBUTEROL/IPRATROPIUM 3 ML NEB RESP TX SCH ×3 (03:28→11:21)
[2017-04-17] MEDS: ALPRAZolam 0.5 MG TABLET PO PRN ×2 (04:06→13:23)
[2017-04-17] MEDS: VANCOMYCIN INJ 1,250 MG in SODIUM CHLORIDE 0.9% 250 ML IV SCH ×2 (04:06→13:28)
[2017-04-17] MEDS: oxyCODONE/ACETAMINOPHEN 5-325 MG TABLET PO PRN ×2 (06:58→12:05)
[2017-04-17] MEDS: LEVOTHYROXINE 88 MCG TABLET PO SCH (09:56)
[2017-04-17] MEDS: methylPREDNISolone SOD SUC 40 MG/1 ML VIAL IV SCH (09:57)
[2017-04-17] MEDS: METOPROLOL TARTRATE 100 MG TABLET PO SCH (09:57)
[2017-04-17 11:50] VITALS: BP 158/80
== END 2017-04-17 16:40 | disposition home or self-care (01) | DRG 438 ==
LOC: SUATTDRO 06:23 → N.3E 06:23 → N.CC 04-07 21:09 → N.5E 04-16 11:19
PROVIDERS: ADMIT Internal Medicine; ATTEND Internal Medicine

== ENCOUNTER 2017-06-13 11:00 | Inpatient (IN) ==
[2017-06-13] MEDS ORDERED: SODIUM CHLORIDE 0.9% 1,000 ML IV STA (11:51)
[2017-06-13] MEDS ORDERED: HYDROmorphone 2 MG/1 ML VIAL IV STA (11:51)
[2017-06-13] MEDS ORDERED: ONDANSETRON 4 MG/2 ML VIAL IV STA (11:51)
[2017-06-13 12:18] LABS: Basophils # 0.1 10*3/uL (0.0-0.2); Basophils % 0.6 % (0.0-0.8); Eosinophils % 0.3 % (0.00-10.9); Hemoglobin 14.8 GM/DL (12.0-16.0); Immature Granulocytes % 0.4 %; Immature Granulocytes Absolute 0.04 #; Lymphocytes # 2.1 10*3/uL (1.4-4.0); Lymphocytes % 19.5 % (21.3-54.2); Mean Corpuscular HGB Conc 32.9 GM/DL (32-36); Mean Corpuscular Hemoglobin 28 PG (27-34); Mean Corpuscular Volume 86.2 FL (87-102); Mean Platelet Volume 10.5 FL (9.6-12.0); Monocytes # 0.4 10*3/uL (0.11-0.8); Monocytes % 3.6 % (1.7-12.7); Neutrophils # 8.3 10*3/uL (1.4-7.4); Neutrophils % 75.6 % (38.7-73.9); Platelet Count 390 T/CUMM (130-400); Red Blood Count 5.22 MC/CUMM (3.8-5.5); Red Cell Distribution Width 15.4 % (9.3-17.3)
[2017-06-13 12:30] LABS: Apearance,Urine CLEAR (Clear); Bilirubin,Urine Negative (Negative); Blood, Urine Negative (Negative); Glucose,Urine (UA) Negative (Negative); Ketones,Urine Negative (Negative); Mucus,Urine Occasional /LPF (Occasional); Nitrite,Urine Negative (Negative); Protein,Urine Negative; RBC,Urine <1 /HPF (0-4); Squamous Epithelial Cell,Urine Occasional /HPF (0-10); Urine Color Straw (Yellow); Urine Specific Gravity 1.002 (1.001-1.035); Urine Urobilinogen < 2.0 EU/DL (0.2-1.0)
[2017-06-13 12:53] LABS: Albumin 2.5 G/DL (3.4-5.0); Bilirubin,Total 1.3 MG/DL (0.2-1.0); Calcium 8.4 MG/DL (8.5-10.1); Osmolality,Calculated 272.5 MOS/KG (273-304); Potassium 3.6 MMOL/L (3.5-5.1); Total Protein 5.7 G/DL (6.4-8.3)
[2017-06-13] MEDS ORDERED: PROMETHAZINE 25 MG/1 ML VIAL IM PRN (13:43)
[2017-06-13] MEDS ORDERED: LABETALOL 100 MG/20 ML VIAL IV PRN (13:51)
[2017-06-13] MEDS: HYDROmorphone 2 MG/1 ML VIAL IV PRN ×5 (14:04→22:17)
[2017-06-13] MEDS: ENOXAPARIN 40 MG/0.4 ML SYRINGE SUBCUT SCH (14:19)
[2017-06-13] MEDS: SODIUM CHLORIDE 0.9% 1,000 ML IV SCH ×2 (14:19→20:31)
[2017-06-13] MEDS: ONDANSETRON 4 MG/2 ML VIAL IV PRN (18:20)
[2017-06-13] MEDS: METOPROLOL TARTRATE 50 MG TABLET PO SCH (20:28)
[2017-06-13] MEDS: HYDROCORTISONE 10 MG TABLET PO SCH (20:28)
[2017-06-13] MEDS: ESCITALOPRAM 10 MG TABLET PO SCH (20:28)
[2017-06-14] MEDS: HYDROmorphone 2 MG/1 ML VIAL IV PRN ×5 (00:20→08:42)
[2017-06-14] MEDS: SODIUM CHLORIDE 0.9% 1,000 ML IV SCH ×3 (03:05→16:40)
[2017-06-14] MEDS: LEVOTHYROXINE 50 MCG TABLET PO SCH (06:03)
[2017-06-14 07:17] LABS: Basophils # 0.1 10*3/uL (0.0-0.2); Basophils % 0.7 % (0.0-0.8); Eosinophils # 0.1 10*3/uL (0.0-0.87); Eosinophils % 0.7 % (0.00-10.9); Hematocrit 38.9 VOL% (35.7-47.0); Hemoglobin 12.1 GM/DL (12.0-16.0); Immature Granulocytes % 0.2 %; Immature Granulocytes Absolute 0.02 #; Lymphocytes # 2.4 10*3/uL (1.4-4.0); Mean Corpuscular HGB Conc 31.1 GM/DL (32-36); Mean Corpuscular Hemoglobin 27 PG (27-34); Mean Corpuscular Volume 87.2 FL (87-102); Mean Platelet Volume 10.8 FL (9.6-12.0); Monocytes # 0.6 10*3/uL (0.11-0.8); Monocytes % 6.6 % (1.7-12.7); Neutrophils # 5.8 10*3/uL (1.4-7.4); Neutrophils % 64.8 % (38.7-73.9); Platelet Count 305 T/CUMM (130-400); Red Blood Count 4.46 MC/CUMM (3.8-5.5); White Blood Count 8.9 T/CUMM (4-12)
[2017-06-14 07:50] LABS: Albumin 2.3 G/DL (3.4-5.0); Bilirubin,Total 1.4 MG/DL (0.2-1.0); Calcium 7.8 MG/DL (8.5-10.1); Potassium 3.4 MMOL/L (3.5-5.1); Risk Ratio 3.32; Total Protein 4.4 G/DL (6.4-8.3)
[2017-06-14] MEDS: ENOXAPARIN 40 MG/0.4 ML SYRINGE SUBCUT SCH (08:38)
[2017-06-14] MEDS: METOPROLOL TARTRATE 50 MG TABLET PO SCH ×2 (08:38→21:46)
[2017-06-14] MEDS: HYDROCORTISONE 10 MG TABLET PO SCH ×2 (08:38→21:46)
[2017-06-14] MEDS ORDERED: HYDROmorphone 2 MG/1 ML VIAL IV PRN (10:27)
[2017-06-14] MEDS: oxyCODONE/ACETAMINOPHEN 5-325 MG TABLET PO PRN ×2 (11:02→17:06)
[2017-06-14] MEDS: fentaNYL 100 MCG/2 ML VIAL IV PRN ×4 (11:03→21:52)
[2017-06-14] MEDS: POTASSIUM CHLORIDE 20 MEQ TABLET PO PRN ×3 (15:00→18:40)
[2017-06-14] MEDS: ONDANSETRON 4 MG/2 ML VIAL IV PRN (15:04)
[2017-06-14] MEDS: ALPRAZolam 0.5 MG TABLET PO PRN (18:40)
[2017-06-14] MEDS: ESCITALOPRAM 10 MG TABLET PO SCH (21:46)
[2017-06-15] MEDS: fentaNYL 100 MCG/2 ML VIAL IV PRN ×8 (01:19→23:59)
[2017-06-15] MEDS: SODIUM CHLORIDE 0.9% 1,000 ML IV SCH ×2 (05:51→12:50)
[2017-06-15] MEDS: LEVOTHYROXINE 50 MCG TABLET PO SCH (05:52)
[2017-06-15 06:35] LABS: Basophils # 0.1 10*3/uL (0.0-0.2); Basophils % 0.9 % (0.0-0.8); Eosinophils % 0.5 % (0.00-10.9); Hematocrit 38.7 VOL% (35.7-47.0); Hemoglobin 12.6 GM/DL (12.0-16.0); Immature Granulocytes % 0.3 %; Immature Granulocytes Absolute 0.02 #; Lymphocytes % 30.9 % (21.3-54.2); Mean Corpuscular HGB Conc 32.6 GM/DL (32-36); Mean Corpuscular Hemoglobin 28 PG (27-34); Mean Corpuscular Volume 85.8 FL (87-102); Monocytes # 0.4 10*3/uL (0.11-0.8); Monocytes % 6.9 % (1.7-12.7); Neutrophils # 3.9 10*3/uL (1.4-7.4); Neutrophils % 60.5 % (38.7-73.9); Platelet Count 299 T/CUMM (130-400); Red Blood Count 4.51 MC/CUMM (3.8-5.5); Red Cell Distribution Width 14.9 % (9.3-17.3); White Blood Count 6.4 T/CUMM (4-12)
[2017-06-15 07:14] LABS: Albumin 2.5 G/DL (3.4-5.0); Bilirubin,Total 0.7 MG/DL (0.2-1.0); Calcium 7.9 MG/DL (8.5-10.1); Osmolality,Calculated 278.1 MOS/KG (273-304); Potassium 3.6 MMOL/L (3.5-5.1); Total Protein 4.8 G/DL (6.4-8.3)
[2017-06-15] MEDS: ONDANSETRON 4 MG/2 ML VIAL IV PRN ×2 (07:59→16:18)
[2017-06-15] MEDS: ALPRAZolam 0.5 MG TABLET PO PRN ×2 (08:05→22:00)
[2017-06-15] MEDS: METOPROLOL TARTRATE 50 MG TABLET PO SCH ×2 (08:05→21:14)
[2017-06-15] MEDS: ENOXAPARIN 40 MG/0.4 ML SYRINGE SUBCUT SCH (08:06)
[2017-06-15] MEDS: HYDROCORTISONE 10 MG TABLET PO SCH ×2 (08:06→21:15)
[2017-06-15] MEDS: oxyCODONE/ACETAMINOPHEN 5-325 MG TABLET PO PRN (09:26)
[2017-06-15] MEDS: MORPHINE ER 15 MG TABLET PO SCH ×3 (12:39→21:15)
[2017-06-15] MEDS: ESCITALOPRAM 10 MG TABLET PO SCH (21:14)
[2017-06-16] MEDS: SODIUM CHLORIDE 0.9% 1,000 ML IV SCH ×4 (00:30→20:08)
[2017-06-16] MEDS: fentaNYL 100 MCG/2 ML VIAL IV PRN ×9 (03:58→22:50)
[2017-06-16 05:57] LABS: Basophils # 0.1 10*3/uL (0.0-0.2); Basophils % 0.7 % (0.0-0.8); Eosinophils # 0.1 10*3/uL (0.0-0.87); Eosinophils % 0.9 % (0.00-10.9); Hematocrit 35.3 VOL% (35.7-47.0); Hemoglobin 11.8 GM/DL (12.0-16.0); Immature Granulocytes % 0.4 %; Immature Granulocytes Absolute 0.03 #; Mean Corpuscular HGB Conc 33.4 GM/DL (32-36); Mean Corpuscular Hemoglobin 28 PG (27-34); Mean Corpuscular Volume 84.9 FL (87-102); Mean Platelet Volume 10.6 FL (9.6-12.0); Monocytes # 0.6 10*3/uL (0.11-0.8); Monocytes % 8.2 % (1.7-12.7); Neutrophils # 4.3 10*3/uL (1.4-7.4); Neutrophils % 60.8 % (38.7-73.9); Platelet Count 313 T/CUMM (130-400); Red Blood Count 4.16 MC/CUMM (3.8-5.5); Red Cell Distribution Width 15.4 % (9.3-17.3)
[2017-06-16 06:28] LABS: Albumin 2.4 G/DL (3.4-5.0); Bilirubin,Total 0.7 MG/DL (0.2-1.0); Calcium 7.6 MG/DL (8.5-10.1); Osmolality,Calculated 283.7 MOS/KG (273-304); Total Protein 4.5 G/DL (6.4-8.3)
[2017-06-16] MEDS: MORPHINE ER 15 MG TABLET PO SCH ×2 (08:23→21:12)
[2017-06-16] MEDS: ALPRAZolam 0.5 MG TABLET PO PRN ×2 (08:23→21:15)
[2017-06-16] MEDS: METOPROLOL TARTRATE 50 MG TABLET PO SCH ×2 (08:23→21:12)
[2017-06-16] MEDS: LEVOTHYROXINE 50 MCG TABLET PO SCH (08:23)
[2017-06-16] MEDS: ENOXAPARIN 40 MG/0.4 ML SYRINGE SUBCUT SCH (08:23)
[2017-06-16] MEDS: HYDROCORTISONE 10 MG TABLET PO SCH ×2 (08:31→21:12)
[2017-06-16] MEDS: ESCITALOPRAM 10 MG TABLET PO SCH (21:11)
[2017-06-17] MEDS: SODIUM CHLORIDE 0.9% 1,000 ML IV SCH (02:47)
[2017-06-17] MEDS: fentaNYL 100 MCG/2 ML VIAL IV PRN ×3 (02:48→09:25)
[2017-06-17] MEDS: LEVOTHYROXINE 50 MCG TABLET PO SCH (05:33)
[2017-06-17 07:42] VITALS: BP 155/102
[2017-06-17] MEDS: HYDROCORTISONE 10 MG TABLET PO SCH (09:24)
[2017-06-17] MEDS: ENOXAPARIN 40 MG/0.4 ML SYRINGE SUBCUT SCH (09:24)
[2017-06-17] MEDS: METOPROLOL TARTRATE 50 MG TABLET PO SCH (09:25)
[2017-06-17] MEDS: MORPHINE ER 15 MG TABLET PO SCH (09:25)
== END 2017-06-17 11:10 | disposition home or self-care (01) | DRG 439 ==
LOC: N.ED 11:00 → N.EDINP 13:32 → N.2E 16:05
PROVIDERS: ADMIT Internal Medicine; ATTEND Internal Medicine

== ENCOUNTER 2017-06-26 07:47 | Inpatient (IN) ==
[2017-06-26] MEDS ORDERED: SODIUM CHLORIDE 0.9% 1,000 ML IV STA (08:14)
[2017-06-26] MEDS ORDERED: ONDANSETRON 4 MG/2 ML VIAL IV STA (08:14)
[2017-06-26] MEDS ORDERED: MORPHINE 4 MG/1 ML VIAL IV STA (08:14)
[2017-06-26] MEDS ORDERED: HYDROmorphone 2 MG/1 ML VIAL ONE (08:48)
[2017-06-26] MEDS ORDERED: HYDROmorphone 2 MG/1 ML VIAL IV STA ×2 (08:49→09:28)
[2017-06-26 08:50] LABS: Basophils # 0.1 10*3/uL (0.0-0.2); Basophils % 0.4 % (0.0-0.8); Eosinophils # 0.1 10*3/uL (0.0-0.87); Eosinophils % 0.5 % (0.00-10.9); Hematocrit 43.6 VOL% (35.7-47.0); Hemoglobin 14.1 GM/DL (12.0-16.0); Immature Granulocytes % 0.4 %; Immature Granulocytes Absolute 0.05 #; Lymphocytes # 1.3 10*3/uL (1.4-4.0); Lymphocytes % 11.4 % (21.3-54.2); Mean Corpuscular HGB Conc 32.3 GM/DL (32-36); Mean Corpuscular Hemoglobin 27 PG (27-34); Mean Corpuscular Volume 84.7 FL (87-102); Mean Platelet Volume 10.6 FL (9.6-12.0); Monocytes # 0.8 10*3/uL (0.11-0.8); Monocytes % 6.6 % (1.7-12.7); Neutrophils # 9.4 10*3/uL (1.4-7.4); Neutrophils % 80.7 % (38.7-73.9); Platelet Count 332 T/CUMM (130-400); Red Blood Count 5.15 MC/CUMM (3.8-5.5); White Blood Count 11.6 T/CUMM (4-12)
[2017-06-26 09:08] LABS: Albumin 2.7 G/DL (3.4-5.0); Bilirubin,Total 0.6 MG/DL (0.2-1.0); Calcium 8.4 MG/DL (8.5-10.1); Osmolality,Calculated 279.1 MOS/KG (273-304); Potassium 2.6 MMOL/L (3.5-5.1); Total Protein 5.9 G/DL (6.4-8.3)
[2017-06-26] MEDS ORDERED: POTASSIUM CHLORIDE 20 MEQ TABLET PO STA (09:11)
[2017-06-26 09:40] LABS: Apearance,Urine CLEAR (Clear); Bilirubin,Urine Negative (Negative); Blood, Urine Negative (Negative); Glucose,Urine (UA) Negative (Negative); Ketones,Urine Negative (Negative); Nitrite,Urine Negative (Negative); Protein,Urine Negative; RBC,Urine <1 /HPF (0-4); Squamous Epithelial Cell,Urine Occasional /HPF (0-10); Urine Color Colorless (Yellow); Urine Urobilinogen < 2.0 EU/DL (0.2-1.0); WBC,Urine <1 /HPF (0-6)
[2017-06-26] MEDS: SODIUM CHLOR 0.9% KCL 20 MEQ 20 MEQ/1,000 ML BAG IV SCH ×4 (10:04→21:08)
[2017-06-26] MEDS ORDERED: methylPREDNISolone SOD SUC 125 MG/2 ML VIAL IV STA (11:17)
[2017-06-26] MEDS ORDERED: ONDANSETRON 4 MG/2 ML VIAL IV PRN (11:17)
[2017-06-26] MEDS ORDERED: NICOTINE 21 MG/24 HR PATCH TRANSDERM PRN (11:17)
[2017-06-26] MEDS ORDERED: ALBUTEROL/IPRATROPIUM 3 ML NEB RESP TX PRN (11:17)
[2017-06-26 11:46] LABS: Free T4 (Free Thyroxine) 1.24 NG/DL (0.76-1.46); Thyroid Stimulating Hormone 1.01 uIU/ml (0.358-3.74)
[2017-06-26] MEDS: LEVOTHYROXINE 50 MCG TABLET PO SCH (12:38)
[2017-06-26] MEDS: METOPROLOL TARTRATE 50 MG TABLET PO SCH ×2 (12:39→20:57)
[2017-06-26] MEDS: HYDROCORTISONE 10 MG TABLET PO SCH ×2 (12:39→20:57)
[2017-06-26] MEDS: oxyCODONE/ACETAMINOPHEN 5-325 MG TABLET PO PRN ×2 (12:40→19:32)
[2017-06-26] MEDS: LACTATED RINGERS 1,000 ML IV SCH ×2 (12:44→20:52)
[2017-06-26] MEDS: ALBUTEROL/IPRATROPIUM 3 ML NEB RESP TX SCH ×2 (13:48→19:43)
[2017-06-26] MEDS: HYDROmorphone 2 MG/1 ML VIAL IV PRN ×4 (14:46→22:59)
[2017-06-26] MEDS: ENOXAPARIN 30 MG/0.3 ML SYRINGE SUBCUT SCH (14:47)
[2017-06-26] MEDS: ALPRAZolam 0.5 MG TABLET PO PRN (19:32)
[2017-06-26] MEDS: ESCITALOPRAM 10 MG TABLET PO SCH (20:58)
[2017-06-26] MEDS: methylPREDNISolone SOD SUC 40 MG/1 ML VIAL IV SCH (22:59)
[2017-06-27] MEDS: hydrALAZINE 20 MG/1 ML VIAL IV PRN (00:38)
[2017-06-27] MEDS: ALBUTEROL/IPRATROPIUM 3 ML NEB RESP TX SCH ×4 (00:40→19:44)
[2017-06-27] MEDS: SODIUM CHLOR 0.9% KCL 20 MEQ 20 MEQ/1,000 ML BAG IV SCH ×5 (02:11→20:44)
[2017-06-27] MEDS: HYDROmorphone 2 MG/1 ML VIAL IV PRN ×5 (02:17→19:05)
[2017-06-27] MEDS: LACTATED RINGERS 1,000 ML IV SCH ×2 (02:18→14:02)
[2017-06-27] MEDS: oxyCODONE/ACETAMINOPHEN 5-325 MG TABLET PO PRN ×2 (03:22→10:11)
[2017-06-27 07:31] LABS: Basophils % 0.2 % (0.0-0.8); Hematocrit 38.3 VOL% (35.7-47.0); Hemoglobin 12.4 GM/DL (12.0-16.0); Immature Granulocytes % 0.4 %; Immature Granulocytes Absolute 0.02 #; Lymphocytes # 0.6 10*3/uL (1.4-4.0); Lymphocytes % 11.7 % (21.3-54.2); Mean Corpuscular HGB Conc 32.4 GM/DL (32-36); Mean Corpuscular Hemoglobin 28 PG (27-34); Mean Corpuscular Volume 85.5 FL (87-102); Mean Platelet Volume 11.1 FL (9.6-12.0); Monocytes # 0.1 10*3/uL (0.11-0.8); Monocytes % 1.3 % (1.7-12.7); Neutrophils # 4.1 10*3/uL (1.4-7.4); Neutrophils % 86.4 % (38.7-73.9); Platelet Count 293 T/CUMM (130-400); Red Blood Count 4.48 MC/CUMM (3.8-5.5); Red Cell Distribution Width 16.2 % (9.3-17.3); White Blood Count 4.8 T/CUMM (4-12)
[2017-06-27 07:47] LABS: Alanine Aminotransferase 21 U/L (13-56); Albumin 2.4 G/DL (3.4-5.0); Alkaline Phosphatase 129 U/L (45-117); Aspartate Amino Transferase 18 U/L (0-37); Bilirubin,Total < 0.39 MG/DL (0.2-1.0); Blood Urea Nitrogen 2 MG/DL (7-18); Calcium 7.4 MG/DL (8.5-10.1); Glucose 140 MG/DL (74-106); Osmolality,Calculated 287.6 MOS/KG (273-304); Potassium 3.2 MMOL/L (3.5-5.1); Sodium 146 MMOL/L (136-145); Total Protein 5.1 G/DL (6.4-8.3)
[2017-06-27] MEDS: PANTOPRAZOLE 40 MG TABLET PO SCH (08:49)
[2017-06-27] MEDS: METOPROLOL TARTRATE 50 MG TABLET PO SCH ×2 (08:49→20:44)
[2017-06-27] MEDS: HYDROCORTISONE 10 MG TABLET PO SCH ×2 (08:49→20:43)
[2017-06-27] MEDS: LEVOTHYROXINE 50 MCG TABLET PO SCH (08:50)
[2017-06-27] MEDS: ALPRAZolam 0.5 MG TABLET PO PRN ×2 (08:55→20:44)
[2017-06-27] MEDS: POTASSIUM CHLORIDE 20 MEQ TABLET PO PRN ×4 (11:24→22:48)
[2017-06-27] MEDS: ENOXAPARIN 30 MG/0.3 ML SYRINGE SUBCUT SCH (11:25)
[2017-06-27] MEDS: methylPREDNISolone SOD SUC 40 MG/1 ML VIAL IV SCH ×2 (11:26→22:48)
[2017-06-27] MEDS ORDERED: ONDANSETRON 4 MG TABLET PO PRN (12:13)
[2017-06-27] MEDS ORDERED: MORPHINE ER 15 MG TABLET PO SCH (12:30)
[2017-06-27] MEDS: oxyCODONE ER 40 MG TABLET PO SCH (13:37)
[2017-06-27] MEDS ORDERED: ALBUTEROL 2.5 MG/3 ML NEB RESP TX PRN (15:00)
[2017-06-27] MEDS: ESCITALOPRAM 10 MG TABLET PO SCH (20:43)
[2017-06-27] MEDS: MEPERIDINE 50 MG/1 ML VIAL IV PRN (22:49)
[2017-06-28] MEDS: ALBUTEROL/IPRATROPIUM 3 ML NEB RESP TX SCH ×3 (01:10→13:25)
[2017-06-28] MEDS: oxyCODONE ER 40 MG TABLET PO SCH ×2 (01:11→12:56)
[2017-06-28] MEDS: POTASSIUM CHLORIDE 20 MEQ TABLET PO PRN (01:11)
[2017-06-28] MEDS: SODIUM CHLOR 0.9% KCL 20 MEQ 20 MEQ/1,000 ML BAG IV SCH ×3 (01:21→06:26)
[2017-06-28] MEDS: MEPERIDINE 50 MG/1 ML VIAL IV PRN ×3 (04:56→16:44)
[2017-06-28] MEDS: ALPRAZolam 0.5 MG TABLET PO PRN (07:10)
[2017-06-28] MEDS: LEVOTHYROXINE 50 MCG TABLET PO SCH (08:51)
[2017-06-28] MEDS: METOPROLOL TARTRATE 50 MG TABLET PO SCH (08:51)
[2017-06-28] MEDS: PANTOPRAZOLE 40 MG TABLET PO SCH (08:51)
[2017-06-28] MEDS: HYDROCORTISONE 10 MG TABLET PO SCH (08:51)
[2017-06-28] MEDS: ENOXAPARIN 30 MG/0.3 ML SYRINGE SUBCUT SCH (11:05)
[2017-06-28] MEDS: methylPREDNISolone SOD SUC 40 MG/1 ML VIAL IV SCH (11:08)
[2017-06-28] MEDS: hydrALAZINE 20 MG/1 ML VIAL IV PRN (16:48)
[2017-06-28 17:43] VITALS: BP 161/99
== END 2017-06-28 17:58 | disposition home or self-care (01) | DRG 439 ==
LOC: N.ED 07:47 → N.EDINP 09:25 → N.3E 11:00
PROVIDERS: ADMIT Internal Medicine Infectious Disease; ATTEND Internal Medicine Infectious Disease

== ENCOUNTER 2018-01-01 10:31 | Inpatient (IN) ==
[2018-01-01] MEDS ORDERED: ONDANSETRON 4 MG TABLET PO PRN (13:34)
[2018-01-01] MEDS ORDERED: ALBUTEROL 2.5 MG/3 ML NEB RESP TX PRN (13:34)
[2018-01-01 14:04] LABS: Apearance,Urine CLEAR (Clear); Bacteria,Urine Occasional /HPF (Few); Bilirubin,Urine Negative (Negative); Blood, Urine Negative (Negative); Glucose,Urine (UA) Negative (Negative); Ketones,Urine Negative (Negative); Nitrite,Urine Negative (Negative); Protein,Urine Negative; RBC,Urine 1 /HPF (0-4); Squamous Epithelial Cell,Urine Occasional /HPF (0-10); Urine Color Straw (Yellow); Urine Specific Gravity 1.004 (1.001-1.035); Urine Urobilinogen < 2.0 EU/DL (0.2-1.0); WBC,Urine 2 /HPF (0-6)
[2018-01-01] MEDS: HYDROmorphone 2 MG/1 ML VIAL IV PRN ×4 (14:34→23:05)
[2018-01-01] MEDS: cefTRIAXone 1,000 MG in SYRINGE 1 EACH IV SCH (14:39)
[2018-01-01] MEDS: LEVOTHYROXINE 50 MCG TABLET PO SCH (14:40)
[2018-01-01] MEDS: HYDROCORTISONE 10 MG TABLET PO SCH ×2 (14:40→20:07)
[2018-01-01] MEDS: SODIUM CHLORIDE 0.9% 1,000 ML IV SCH (14:40)
[2018-01-01] MEDS: PANTOPRAZOLE 40 MG TABLET PO SCH (14:41)
[2018-01-01] MEDS: THIAMINE 100 MG TABLET PO SCH (14:41)
[2018-01-01] MEDS: METOPROLOL TARTRATE 50 MG TABLET PO SCH ×2 (14:41→20:07)
[2018-01-01] MEDS: ENOXAPARIN 40 MG/0.4 ML SYRINGE SUBCUT SCH (14:43)
[2018-01-01] MEDS: POTASSIUM CHLORIDE 20 MEQ TABLET PO SCH ×3 (14:43→22:20)
[2018-01-01] MEDS: FAMOTIDINE 20 MG/2 ML VIAL IV SCH (14:44)
[2018-01-01] MEDS: oxyCODONE/ACETAMINOPHEN 5-325 MG TABLET PO PRN ×2 (14:47→23:58)
[2018-01-01] MEDS: ONDANSETRON 4 MG/2 ML VIAL IV PRN (14:49)
[2018-01-01] MEDS: NAPROXEN 250 MG TABLET PO PRN (18:42)
[2018-01-02] MEDS: FAMOTIDINE 20 MG/2 ML VIAL IV SCH ×2 (01:15→14:15)
[2018-01-02] MEDS: POTASSIUM CHLORIDE 20 MEQ TABLET PO SCH ×2 (01:30→05:10)
[2018-01-02] MEDS: HYDROmorphone 2 MG/1 ML VIAL IV PRN ×8 (02:02→23:33)
[2018-01-02 05:00] LABS: Basophils % 0.1 % (0.0-0.8); Hematocrit 37.6 VOL% (35.7-47.0); Hemoglobin 11.4 GM/DL (12.0-16.0); Immature Granulocytes % 0.5 %; Immature Granulocytes Absolute 0.09 #; Lymphocytes # 1.1 10*3/uL (1.4-4.0); Lymphocytes % 6.1 % (21.3-54.2); Mean Corpuscular HGB Conc 30.3 GM/DL (32-36); Mean Corpuscular Hemoglobin 25 PG (27-34); Mean Corpuscular Volume 80.7 FL (87-102); Mean Platelet Volume 10.6 FL (9.6-12.0); Monocytes % 5.9 % (1.7-12.7); Neutrophils % 87.4 % (38.7-73.9); Platelet Count 314 T/CUMM (130-400); Red Blood Count 4.66 MC/CUMM (3.8-5.5); Red Cell Distribution Width 16.9 % (9.3-17.3); White Blood Count 17.1 T/CUMM (4-12)
[2018-01-02 05:27] LABS: Calcium 8.1 MG/DL (8.5-10.1)
[2018-01-02 05:28] LABS: Lactic Acid 1.6 MMOL/L (0.4-2.0)
[2018-01-02] MEDS: SODIUM CHLORIDE 0.9% 1,000 ML IV SCH ×3 (05:55→22:46)
[2018-01-02] MEDS: oxyCODONE/ACETAMINOPHEN 5-325 MG TABLET PO PRN ×2 (09:16→15:58)
[2018-01-02] MEDS: HYDROCORTISONE 10 MG TABLET PO SCH ×2 (09:17→20:11)
[2018-01-02] MEDS: METOPROLOL TARTRATE 50 MG TABLET PO SCH ×2 (09:18→20:11)
[2018-01-02] MEDS: LEVOTHYROXINE 50 MCG TABLET PO SCH (09:18)
[2018-01-02] MEDS: PANTOPRAZOLE 40 MG TABLET PO SCH (09:18)
[2018-01-02] MEDS: THIAMINE 100 MG TABLET PO SCH (09:19)
[2018-01-02] MEDS: NAPROXEN 250 MG TABLET PO PRN (13:07)
[2018-01-02] MEDS: ENOXAPARIN 40 MG/0.4 ML SYRINGE SUBCUT SCH (14:12)
[2018-01-02] MEDS: cefTRIAXone 1,000 MG in SYRINGE 1 EACH IV SCH (14:13)
[2018-01-03] MEDS: SODIUM CHLORIDE 0.9% 1,000 ML IV SCH ×2 (00:17→16:22)
[2018-01-03] MEDS: FAMOTIDINE 20 MG/2 ML VIAL IV SCH ×2 (01:05→14:10)
[2018-01-03] MEDS: HYDROmorphone 2 MG/1 ML VIAL IV PRN ×6 (03:39→20:51)
[2018-01-03] MEDS: ONDANSETRON 4 MG/2 ML VIAL IV PRN (03:39)
[2018-01-03 05:21] LABS: Basophils % 0.2 % (0.0-0.8); Eosinophils % 0.1 % (0.00-10.9); Hematocrit 33.4 VOL% (35.7-47.0); Hemoglobin 10.2 GM/DL (12.0-16.0); Immature Granulocytes % 0.4 %; Immature Granulocytes Absolute 0.04 #; Lymphocytes # 1.4 10*3/uL (1.4-4.0); Lymphocytes % 13.7 % (21.3-54.2); Mean Corpuscular HGB Conc 30.5 GM/DL (32-36); Mean Corpuscular Hemoglobin 25 PG (27-34); Mean Corpuscular Volume 81.5 FL (87-102); Mean Platelet Volume 10.9 FL (9.6-12.0); Monocytes # 0.6 10*3/uL (0.11-0.8); Monocytes % 5.6 % (1.7-12.7); Neutrophils # 8.2 10*3/uL (1.4-7.4); Platelet Count 298 T/CUMM (130-400); Red Cell Distribution Width 17.1 % (9.3-17.3); White Blood Count 10.3 T/CUMM (4-12)
[2018-01-03 05:38] LABS: Alanine Aminotransferase 10 U/L (13-56); Albumin 2.4 G/DL (3.4-5.0); Alkaline Phosphatase 80 U/L (45-117); Aspartate Amino Transferase 7 U/L (0-37); Bilirubin,Total < 0.39 MG/DL (0.2-1.0); Blood Urea Nitrogen 7 MG/DL (7-18); Calcium 8.1 MG/DL (8.5-10.1); Glucose 103 MG/DL (74-106); Sodium 143 MMOL/L (136-145); Total Protein 5.8 G/DL (6.4-8.3)
[2018-01-03] MEDS: HYDROCORTISONE 10 MG TABLET PO SCH ×2 (10:03→20:51)
[2018-01-03] MEDS: LEVOTHYROXINE 50 MCG TABLET PO SCH (10:03)
[2018-01-03] MEDS: METOPROLOL TARTRATE 50 MG TABLET PO SCH ×2 (10:03→20:51)
[2018-01-03] MEDS: THIAMINE 100 MG TABLET PO SCH (10:03)
[2018-01-03] MEDS: PANTOPRAZOLE 40 MG TABLET PO SCH (10:03)
[2018-01-03] MEDS: AZITHROMYCIN INJ 500 MG in SODIUM CHLORIDE 0.9% 250 ML IV SCH (12:58)
[2018-01-03 13:31] LABS: Troponin I < 0.015 NG/ML (0.00-0.045)
[2018-01-03] MEDS: cefTRIAXone 1,000 MG in SYRINGE 1 EACH IV SCH (14:10)
[2018-01-03] MEDS: ENOXAPARIN 40 MG/0.4 ML SYRINGE SUBCUT SCH (14:10)
[2018-01-03] MEDS: oxyCODONE/ACETAMINOPHEN 5-325 MG TABLET PO PRN (14:10)
[2018-01-03] MEDS: NAPROXEN 250 MG TABLET PO PRN (20:51)
[2018-01-04] MEDS: HYDROmorphone 2 MG/1 ML VIAL IV PRN ×5 (01:01→20:34)
[2018-01-04] MEDS: FAMOTIDINE 20 MG/2 ML VIAL IV SCH ×2 (03:15→16:25)
[2018-01-04] MEDS: oxyCODONE/ACETAMINOPHEN 5-325 MG TABLET PO PRN ×2 (03:42→18:47)
[2018-01-04 04:46] LABS: Basophils % 0.2 % (0.0-0.8); Eosinophils % 0.2 % (0.00-10.9); Hemoglobin 11.2 GM/DL (12.0-16.0); Immature Granulocytes % 0.4 %; Immature Granulocytes Absolute 0.04 #; Lymphocytes # 1.6 10*3/uL (1.4-4.0); Mean Corpuscular HGB Conc 30.3 GM/DL (32-36); Mean Corpuscular Hemoglobin 24 PG (27-34); Mean Corpuscular Volume 80.6 FL (87-102); Mean Platelet Volume 11.1 FL (9.6-12.0); Monocytes # 0.5 10*3/uL (0.11-0.8); Monocytes % 5.4 % (1.7-12.7); Neutrophils # 7.7 10*3/uL (1.4-7.4); Neutrophils % 77.8 % (38.7-73.9); Platelet Count 380 T/CUMM (130-400); Red Blood Count 4.59 MC/CUMM (3.8-5.5); Red Cell Distribution Width 16.9 % (9.3-17.3); White Blood Count 9.9 T/CUMM (4-12)
[2018-01-04 05:06] LABS: Calcium 8.4 MG/DL (8.5-10.1); Osmolality,Calculated 279.3 MOS/KG (273-304); Potassium 3.4 MMOL/L (3.5-5.1)
[2018-01-04] MEDS: LEVOTHYROXINE 50 MCG TABLET PO SCH (09:45)
[2018-01-04] MEDS: POTASSIUM CHLORIDE 20 MEQ TABLET PO PRN (09:45)
[2018-01-04] MEDS: METOPROLOL TARTRATE 50 MG TABLET PO SCH (09:45)
[2018-01-04] MEDS: PANTOPRAZOLE 40 MG TABLET PO SCH (09:45)
[2018-01-04] MEDS: THIAMINE 100 MG TABLET PO SCH (09:45)
[2018-01-04] MEDS: HYDROCORTISONE 10 MG TABLET PO SCH (12:09)
[2018-01-04] MEDS: HYDROmorphone 2 MG/1 ML VIAL IM PRN (12:10)
[2018-01-04] MEDS: amLODIPine 5 MG TABLET PO SCH (12:10)
[2018-01-04] MEDS ORDERED: INFLUENZA VIRUS VACCINE 0.5 ML SYRINGE IM ONE (13:22)
[2018-01-04] MEDS: AZITHROMYCIN INJ 500 MG in SODIUM CHLORIDE 0.9% 250 ML IV SCH (16:24)
[2018-01-04] MEDS: cefTRIAXone 1,000 MG in SYRINGE 1 EACH IV SCH (16:25)
[2018-01-04] MEDS: ENOXAPARIN 40 MG/0.4 ML SYRINGE SUBCUT SCH (16:26)
[2018-01-04] MEDS: ONDANSETRON 4 MG/2 ML VIAL IV PRN (18:46)
[2018-01-05] MEDS: ONDANSETRON 4 MG/2 ML VIAL IV PRN ×3 (01:13→21:30)
[2018-01-05] MEDS: HYDROmorphone 2 MG/1 ML VIAL IV PRN ×7 (01:13→21:29)
[2018-01-05] MEDS: HYDROCORTISONE 10 MG TABLET PO SCH ×3 (01:14→21:29)
[2018-01-05] MEDS: NAPROXEN 250 MG TABLET PO PRN ×2 (01:14→16:36)
[2018-01-05] MEDS: METOPROLOL TARTRATE 50 MG TABLET PO SCH ×3 (01:15→21:29)
[2018-01-05] MEDS: SODIUM CHLORIDE 0.9% 1,000 ML IV SCH ×2 (01:24→08:06)
[2018-01-05] MEDS: oxyCODONE/ACETAMINOPHEN 5-325 MG TABLET PO PRN ×2 (03:10→16:36)
[2018-01-05] MEDS: FAMOTIDINE 20 MG/2 ML VIAL IV SCH ×2 (03:13→14:56)
[2018-01-05 05:04] LABS: Basophils # 0.1 10*3/uL (0.0-0.2); Basophils % 0.6 % (0.0-0.8); Eosinophils # 0.1 10*3/uL (0.0-0.87); Eosinophils % 1.2 % (0.00-10.9); Hemoglobin 11.8 GM/DL (12.0-16.0); Immature Granulocytes % 0.5 %; Immature Granulocytes Absolute 0.04 #; Lymphocytes # 1.5 10*3/uL (1.4-4.0); Lymphocytes % 18.8 % (21.3-54.2); Mean Corpuscular HGB Conc 31.1 GM/DL (32-36); Mean Corpuscular Hemoglobin 25 PG (27-34); Mean Platelet Volume 10.5 FL (9.6-12.0); Monocytes # 0.5 10*3/uL (0.11-0.8); Monocytes % 6.9 % (1.7-12.7); Neutrophils # 5.5 10*3/uL (1.4-7.4); Platelet Count 431 T/CUMM (130-400); Red Blood Count 4.75 MC/CUMM (3.8-5.5); Red Cell Distribution Width 16.7 % (9.3-17.3); White Blood Count 7.7 T/CUMM (4-12)
[2018-01-05 05:30] LABS: Calcium 8.3 MG/DL (8.5-10.1); Osmolality,Calculated 280.1 MOS/KG (273-304); Potassium 2.9 MMOL/L (3.5-5.1)
[2018-01-05] MEDS: PANTOPRAZOLE 40 MG TABLET PO SCH (09:19)
[2018-01-05] MEDS: amLODIPine 5 MG TABLET PO SCH (09:19)
[2018-01-05] MEDS: LEVOTHYROXINE 50 MCG TABLET PO SCH (09:19)
[2018-01-05] MEDS: THIAMINE 100 MG TABLET PO SCH (09:19)
[2018-01-05] MEDS ORDERED: POTASSIUM CHLORIDE 20 MEQ/15 ML UDCUP PO ONE (10:56)
[2018-01-05] MEDS: AZITHROMYCIN INJ 500 MG in SODIUM CHLORIDE 0.9% 250 ML IV SCH (12:01)
[2018-01-05] MEDS: ENOXAPARIN 40 MG/0.4 ML SYRINGE SUBCUT SCH (14:55)
[2018-01-05] MEDS: cefTRIAXone 1,000 MG in SYRINGE 1 EACH IV SCH (14:56)
[2018-01-05] MEDS: POTASSIUM CHLORIDE 20 MEQ TABLET PO PRN (16:36)
[2018-01-06] MEDS: FAMOTIDINE 20 MG/2 ML VIAL IV SCH ×2 (01:04→15:47)
[2018-01-06] MEDS: HYDROmorphone 2 MG/1 ML VIAL IV PRN ×5 (01:43→21:06)
[2018-01-06] MEDS: oxyCODONE/ACETAMINOPHEN 5-325 MG TABLET PO PRN ×3 (04:19→18:08)
[2018-01-06] MEDS: NAPROXEN 250 MG TABLET PO PRN (04:20)
[2018-01-06 05:27] LABS: Basophils % 0.3 % (0.0-0.8); Eosinophils # 0.2 10*3/uL (0.0-0.87); Eosinophils % 1.2 % (0.00-10.9); Hematocrit 41.2 VOL% (35.7-47.0); Hemoglobin 12.4 GM/DL (12.0-16.0); Immature Granulocytes % 0.4 %; Immature Granulocytes Absolute 0.05 #; Lymphocytes # 1.6 10*3/uL (1.4-4.0); Lymphocytes % 12.8 % (21.3-54.2); Mean Corpuscular HGB Conc 30.1 GM/DL (32-36); Mean Corpuscular Hemoglobin 24 PG (27-34); Mean Corpuscular Volume 81.1 FL (87-102); Mean Platelet Volume 10.8 FL (9.6-12.0); Monocytes # 0.7 10*3/uL (0.11-0.8); Monocytes % 5.2 % (1.7-12.7); Neutrophils # 10.1 10*3/uL (1.4-7.4); Neutrophils % 80.1 % (38.7-73.9); Platelet Count 495 T/CUMM (130-400); Red Blood Count 5.08 MC/CUMM (3.8-5.5); Red Cell Distribution Width 16.8 % (9.3-17.3); White Blood Count 12.6 T/CUMM (4-12)
[2018-01-06 05:55] LABS: Calcium 8.7 MG/DL (8.5-10.1); Osmolality,Calculated 280.1 MOS/KG (273-304); Potassium 3.8 MMOL/L (3.5-5.1)
[2018-01-06] MEDS: THIAMINE 100 MG TABLET PO SCH (10:04)
[2018-01-06] MEDS: METOPROLOL TARTRATE 50 MG TABLET PO SCH ×2 (10:05→21:06)
[2018-01-06] MEDS: HYDROCORTISONE 10 MG TABLET PO SCH ×2 (10:05→21:06)
[2018-01-06] MEDS: amLODIPine 5 MG TABLET PO SCH (10:05)
[2018-01-06] MEDS: LEVOTHYROXINE 50 MCG TABLET PO SCH (10:06)
[2018-01-06] MEDS: PANTOPRAZOLE 40 MG TABLET PO SCH (10:13)
[2018-01-06] MEDS: SODIUM CHLORIDE 0.9% 1,000 ML IV SCH (15:41)
[2018-01-06] MEDS: cefTRIAXone 1,000 MG in SYRINGE 1 EACH IV SCH (15:44)
[2018-01-06] MEDS: AZITHROMYCIN INJ 500 MG in SODIUM CHLORIDE 0.9% 250 ML IV SCH (16:33)
[2018-01-06] MEDS: ENOXAPARIN 40 MG/0.4 ML SYRINGE SUBCUT SCH (16:36)
[2018-01-06] MEDS: ONDANSETRON 4 MG/2 ML VIAL IV PRN (17:22)
[2018-01-07] MEDS: HYDROmorphone 2 MG/1 ML VIAL IV PRN ×4 (01:46→21:27)
[2018-01-07] MEDS: FAMOTIDINE 20 MG/2 ML VIAL IV SCH ×2 (01:50→18:22)
[2018-01-07] MEDS: oxyCODONE/ACETAMINOPHEN 5-325 MG TABLET PO PRN ×3 (03:07→16:28)
[2018-01-07] MEDS: PANTOPRAZOLE 40 MG TABLET PO SCH (09:03)
[2018-01-07] MEDS: amLODIPine 5 MG TABLET PO SCH ×2 (09:03→20:51)
[2018-01-07] MEDS: METOPROLOL TARTRATE 50 MG TABLET PO SCH ×2 (09:03→20:51)
[2018-01-07] MEDS: HYDROCORTISONE 10 MG TABLET PO SCH ×2 (09:03→20:51)
[2018-01-07] MEDS: LEVOTHYROXINE 50 MCG TABLET PO SCH (09:09)
[2018-01-07] MEDS: THIAMINE 100 MG TABLET PO SCH (09:09)
[2018-01-07] MEDS: SODIUM CHLORIDE 0.9% 1,000 ML IV SCH (11:24)
[2018-01-07] MEDS: cefTRIAXone 1,000 MG in SYRINGE 1 EACH IV SCH (16:26)
[2018-01-07] MEDS: AZITHROMYCIN INJ 500 MG in SODIUM CHLORIDE 0.9% 250 ML IV SCH (16:29)
[2018-01-07] MEDS: ENOXAPARIN 40 MG/0.4 ML SYRINGE SUBCUT SCH (16:31)
[2018-01-07] MEDS: HYDROmorphone 2 MG/1 ML VIAL IM PRN (18:22)
[2018-01-08] MEDS: HYDROmorphone 2 MG/1 ML VIAL IV PRN ×4 (00:26→11:44)
[2018-01-08] MEDS: SODIUM CHLORIDE 0.9% 1,000 ML IV SCH ×2 (01:20→13:26)
[2018-01-08] MEDS: FAMOTIDINE 20 MG/2 ML VIAL IV SCH (04:15)
[2018-01-08 04:35] LABS: Basophils % 0.3 % (0.0-0.8); Eosinophils # 0.2 10*3/uL (0.0-0.87); Eosinophils % 1.4 % (0.00-10.9); Hematocrit 37.4 VOL% (35.7-47.0); Hemoglobin 11.5 GM/DL (12.0-16.0); Immature Granulocytes % 0.5 %; Immature Granulocytes Absolute 0.06 #; Lymphocytes # 1.2 10*3/uL (1.4-4.0); Lymphocytes % 9.7 % (21.3-54.2); Mean Corpuscular HGB Conc 30.7 GM/DL (32-36); Mean Corpuscular Hemoglobin 24 PG (27-34); Mean Corpuscular Volume 79.1 FL (87-102); Mean Platelet Volume 9.9 FL (9.6-12.0); Monocytes # 0.8 10*3/uL (0.11-0.8); Monocytes % 6.5 % (1.7-12.7); Neutrophils # 10.2 10*3/uL (1.4-7.4); Neutrophils % 81.6 % (38.7-73.9); Platelet Count 418 T/CUMM (130-400); Red Blood Count 4.73 MC/CUMM (3.8-5.5); Red Cell Distribution Width 16.5 % (9.3-17.3); White Blood Count 12.6 T/CUMM (4-12)
[2018-01-08 04:53] LABS: Calcium 8.4 MG/DL (8.5-10.1); Osmolality,Calculated 276.4 MOS/KG (273-304); Potassium 3.4 MMOL/L (3.5-5.1)
[2018-01-08] MEDS: amLODIPine 5 MG TABLET PO SCH (09:17)
[2018-01-08] MEDS: HYDROCORTISONE 10 MG TABLET PO SCH (09:17)
[2018-01-08] MEDS: METOPROLOL TARTRATE 50 MG TABLET PO SCH (09:18)
[2018-01-08] MEDS: THIAMINE 100 MG TABLET PO SCH (09:18)
[2018-01-08] MEDS: PANTOPRAZOLE 40 MG TABLET PO SCH (09:18)
[2018-01-08] MEDS: LEVOTHYROXINE 50 MCG TABLET PO SCH (09:18)
[2018-01-08] MEDS: oxyCODONE/ACETAMINOPHEN 5-325 MG TABLET PO PRN (09:25)
[2018-01-08] MEDS: AZITHROMYCIN INJ 500 MG in SODIUM CHLORIDE 0.9% 250 ML IV SCH (13:00)
[2018-01-08 13:18] VITALS: BP 138/75
== END 2018-01-08 13:15 | disposition home or self-care (01) | DRG 438 ==
LOC: SUATTDRO 12:09 → N.CC 12:09 → N.5E 01-02 22:33
PROVIDERS: ADMIT Internal Medicine; ATTEND Internal Medicine